=== PATIENT | female | born 1970 | race Caucasian/White ===

== ENCOUNTER 2019-09-26 20:20 | Emergency (ER) | payer MEDICAID ==
[~2019-09-26] VITALS: Ht 167.6 cm; Wt 86.0 kg
[2019-09-26] MEDS ORDERED: HYDRALAZINE 20MG/ML VIAL IV ONE (23:00)
[2019-09-26] MEDS ORDERED: ACETAMINOPHEN WITH CODEINE 300/30MG TABLET PO ONE (23:15)
[2019-09-26] MEDS ORDERED: ACETAMINOPHEN WITH CODEINE 300/30MG TABLET ONE (23:25)
[2019-09-26 23:31] LABS: BASOPHILS % 0.9 % (0.0-2.0); EOSINOPHILS % 3.1 % (0.0-5.0); HEMATOCRIT. 34.6 % (36.0-48.0); HEMOGLOBIN. 11.7 g/dL (12.0-16.0); LYMPHOCYTES % 25.9 % (20.0-50.0); MEAN CORPUSCULAR VOLUME 76.9 fL (81.0-99.0); MEAN PLATELET VOLUME 7.6 fl (7.4-10.4); MONOCYTES % 8.3 % (2.0-8.0); NEUTROPHILS % 61.8 % (40.0-76.0); PLATELET 295 x1000/uL (130-400); RED CELL DISTRIBUTION WIDTH 14.4 % (11.6-14.6)
[2019-09-26 23:38] LABS: CHLORIDE 105 mEq/L (98-107)
[2019-09-27 05:00] VITALS: BP 119/59
== END 2019-09-27 07:19 | disposition home or self-care (01) ==
LOC: ER 20:20
DX: I10 Essential (primary) hypertension (principal); G44.209 Tension-type headache, unspecified, not intractable
CPT/HCPCS: 36415; 80053; 85025; 96374; 99283; J0360; Z7610